=== PATIENT | female | born 1960 | race Caucasian/White ===

== ENCOUNTER → 2017-07-12 | Outpatient (CLI) | payer BC ==
--- NOTE | 2017-07-12 16:20 | CT ---
EXAMINATION TYPE: CT sinus wo con DATE OF EXAM: 07/12/2017 COMPARISON: NONE HISTORY: 56-year-old female with sinus pain, pressure and congestion x years. CT DLP: 587.50 mGycm Automated exposure control for dose reduction was used. TECHNIQUE: Noncontrast axial views of the paranasal sinuses were obtained. Coronal reconstructions pe rformed. FINDINGS: Lobulated mucosal thickening floor of the right maxillary sinus, possible polyp or mucosal retention cyst. Trace mucosal thickening floor of the left maxillary sinus. The frontal and sphenoid sinuses as well as the ethmoid air cells remain well pneumatized. There is no air-fluid level. 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 There is no destruction of the osseous sims of the paranasal sinuses. The osteomeatal complexes are patent. The nasal septum is not deviated. The imaged brain and orbits are normal in appearance. Visualized mastoid air cells and middle ear cavities are well pneumatized. Reformatted images confirm above findings. IMPRESSION: Moderate lobulated mucosal thickening floor of the right maxillary sinus, possible underlying polyp o r mucosal retention cyst. Trace mucosal thickening left maxillary sinus. The remaining paranasal sinu ses are clear.
== END | disposition home or self-care (01) ==
LOC: RADCTMAIN 15:46
PROVIDERS: ATTEND Otolaryngology
DX: J34.89 Other specified disorders of nose and nasal sinuses (principal)
CPT/HCPCS: 70486